=== PATIENT | male | born 1970 | race Caucasian/White ===

== ENCOUNTER 2020-11-15 11:02 | Emergency (ER) | payer OTHER ==
[~2020-11-15] VITALS: Ht 188 cm; Wt 104.3 kg
[2020-11-15 11:41] VITALS: BP 127/93
[2020-11-15] MEDS ORDERED: traMADol HCL 50 MG TAB PO ONE (12:15)
== END 2020-11-15 12:47 | disposition home or self-care (01) ==
LOC: ER 11:02
DX: S09.8XXA Other specified injuries of head, initial encounter (principal); W19.XXXA Unspecified fall, initial encounter; Y93.89 Activity, other specified; Y92.89 Other specified places as the place of occurrence of the external cause; Y99.8 Other external cause status
CPT/HCPCS: 70450; 72125